=== PATIENT | female | born 1985 | race Caucasian/White ===

== ENCOUNTER 2019-01-11 08:12 | Day surgery (SDC) | payer BC ==
[~2019-01-11] VITALS: Ht 172.7 cm; Wt 102.7 kg
[2019-01-11] VITALS (25 sets, daily range): BP systolic 111–141; BP diastolic 59–81; PULSE 58–82; RESP 13–21; Ht 172.7 cm; Wt 102.7 kg
[2019-01-11] MEDS ORDERED: AMLO-147 PO (08:40)
[2019-01-11] MEDS ORDERED: HYDR12.58 PO (08:42)
[2019-01-11] MEDS ORDERED: LACTATED RINGER'S 1,000 ML IV SCH (09:30)
[2019-01-11] MEDS ORDERED: CEFAZOLIN 2 GM/50 ML (PMX) 50 ML IVPB ONE (09:30)
--- NOTE | 2019-01-11 10:32 | HPN ---
Date/Time of Note Date/Time of Note DATE: 01/11/19 TIME: 10:31 Interval H&P Admission Note Pt. seen H&P reviewed: No system changes SHARYN JIMENEZ PA-C Jan 11, 2019 10:32
[2019-01-11] MEDS ORDERED: BUPIVACAINE 0.25%/EPI (SDV) 30 ML INJ ONE (10:38)
[2019-01-11] MEDS ORDERED: THROMBIN (BOVINE) 5,000 UNIT VIAL TP ONE ×2 (10:39→12:21)
[2019-01-11] MEDS ORDERED: POLYMYXIN/BACITRACIN 1L IRRIG ONE (10:39)
[2019-01-11] MEDS ORDERED: GELATIN SIZE 100 SPONGE ONE (10:39)
[2019-01-11] MEDS ORDERED: SURGIFOAM POWDER 1 GM KIT ONE (10:39)
--- NOTE | 2019-01-11 10:45 | PREAC ---
Date/Time of Note Date/Time of Note DATE: 01/11/19 TIME: 10:44 Anesthesia Eval and Record Evaluation Time Pre-Procedure Interview DATE: 01/11/19 TIME: 10:44 Age 33 Sex female NPO: 8 hrs Preoperative diagnosis Lumbar L5-S1 Spinal Stenosis, HNP Planned procedure Lumbar L5-S1 Microdiscetomy Past Medical History Past Medical History: Includes Cardio: HTN GI: Obesity Surgery & Anesthesia Issues No known issue Meds Anticoagulation: No Beta Bronwyn within 24 hr: No Reason Beta Bronwyn not given: Pt. not on B-Bronwyn Reported Medications Hydrochlorothiazide* (Hydrochlorothiazide*) 12.5 Mg Tablet, 12.5 MG PO DAILY, #30 TAB 01/11/19 Amlodipine Besylate* (Amlodipine Besylate*) 10 Mg Tablet, 10 MG PO DAILY, #30 TAB 01/11/19 Current Medications Lactated Ringer's 1,000 ml @ 25 mls/hr Q24H IV Last administered on 01/11/19at 09:26; Admin Dose 25 MLS/HR; Start 01/11/19 at 09:30 Potassium Chloride/Dextrose/ Sod Cl 1,000 ml @ 100 mls/hr Q10H IV ; Start 01/11/19 at 10:32; Status UNV Acetaminophen/ Hydrocodone Bitart (Redgranite (10/325)) 1 tab Q4H PRN PO .PAIN 1-5; Start 01/11/19 at 11:00; Status UNV Acetaminophen/ Hydrocodone Bitart (Redgranite (10/325)) 2 tab Q4H PRN PO .PAIN 6-10; Start 01/11/19 at 11:00; Status UNV Hydromorphone HCl (Dilaudid) 0.2 mg Q1H PRN IV .BREAKTHROUGH PAIN; Start 01/11/19 at 11:00; Status UNV Cefazolin Sodium 50 ml @ 100 mls/hr Q8H IVPB ; Start 01/11/19 at 11:00; Stop 01/12/19 at 03:29; Status UNV Ondansetron HCl (Zofran Inj) 4 mg Q6H PRN IV NAUSEA/VOMITING; Start 01/11/19 at 11:00; Status UNV Bisacodyl (Dulcolax Supp) 10 mg DAILY PRN MA .CONSTIPATION; Start 01/11/19 at 11:00; Status UNV Docusate Sodium (Colace) 100 mg BID PO ; Start 01/11/19 at 21:00; Status UNV Al Hydrox/Mg Hydrox/Simethicone (Mag-Al Plus) 15 ml Q6H PRN PO .CONSTIPATION/DYSPEPSIA; Start 01/11/19 at 11:00; Status UNV Acetaminophen (Tylenol Tab) 650 mg Q4H PRN PO DE JESUS OR TEMP GREATER THAN 101.3F; Start 01/11/19 at 11:00; Status UNV Cyclobenzaprine HCl (Flexeril) 5 mg TID PRN PO .MUSCLE SPASM; Start 01/11/19 at 11:00; Status UNV Phenol (Cepastat Lozenge) 1 lozenge PRN PRN MT .SORE THROAT; Start 01/11/19 at 11:00; Status UNV Diphenhydramine HCl (Benadryl) 25 mg Q6H PRN PO .ITCHING; Start 01/11/19 at 11:00; Status UNV Diphenhydramine HCl (Benadryl) 25 mg Q6H PRN IV .ITCHING; Start 01/11/19 at 11:00; Status UNV Naloxone HCl (Narcan) 0.2 mg Q2M PRN IV .RR 8 BREATHS/MIN OR LESS; Start 01/11/19 at 11:00; Status UNV Meds reviewed: Yes Allergies Coded Allergies: No Known Allergy (Unverified , 01/11/19) Allergies Reviewed: Yes Labs/Studies Labs Reviewed: Reviewed by anesthesiologist test: Negative Studies: ECG (n/a), CXR (n/a) Pre-procedure Exam Last vitals Vital Signs Date Temp Pulse Resp B/P (MAP) Pulse Ox O2 O2 Flow FiO2 Time Delivery Rate 01/11/19 97.0 77 16 135/81 99 Room Air 09:06 (99) Airway: Adequate mouth opening, Adequate thyromental dist Mallampati: Mallampati II Teeth: Normal Lung: Normal Heart: Normal ASA Physical Status ASA physical status: 2 Emergency: None Planned Anesthetic General/MAC: ETT Planned Pain Management Parenteral pain med Pre-operative Attestations Prior to commencing anesthesia and surgery, the patient was re-evaluated, there was verification of: *The patient's identity *The results of appropriate recent lab work and preoperative vital signs *The above evaluation not changing prior to induction *Anesthetic plan, risk benefits, alternative and complications discussed with patient/family; questions answered; patient/family understands, accepts and wishes to proceed. HEYDI HORTON MD Jan 11, 2019 10:45
[2019-01-11] MEDS ORDERED: MIDAZOLAM 1 MG/ML 2 ML INJ ONE (10:50)
[2019-01-11] MEDS ORDERED: PROPOFOL 20 ML ONE (10:50)
[2019-01-11] MEDS ORDERED: ROCURONIUM 50 MG INJ ONE (10:50)
[2019-01-11] MEDS ORDERED: HYDROmorphONE 0.5 MG/0.5 ML SYG IV PRN (11:00)
[2019-01-11] MEDS ORDERED: METOCLOPRAMIDE 10 MG INJ IV PRN (11:00)
[2019-01-11] MEDS ORDERED: HYDROCODONE/APAP (10/325) TAB PO PRN (11:00)
[2019-01-11] MEDS ORDERED: LABETALOL HCL 20MG INJ IV PRN (11:00)
[2019-01-11] MEDS ORDERED: NALOXONE (0.4 MG/ML) INJ IV PRN (11:00)
[2019-01-11] MEDS ORDERED: DIPHENHYDRAMINE 50 MG INJ IV PRN ×2 (11:00)
[2019-01-11] MEDS ORDERED: SEVOFLURANE 15 MIN ONE (11:00)
[2019-01-11] MEDS ORDERED: hydrALAzine 20 MG INJ IV PRN (11:00)
[2019-01-11] MEDS ORDERED: MEPERIDINE 25 MG INJ IV PRN (11:00)
[2019-01-11] MEDS ORDERED: AL HYDROX/MG HYDROX/SIMETH 30 ML CUP PO PRN (11:00)
[2019-01-11] MEDS ORDERED: CYCLOBENZAPRINE 10 MG TAB PO PRN (11:00)
[2019-01-11] MEDS ORDERED: CEPASTAT LOZENGE MT PRN (11:00)
[2019-01-11] MEDS ORDERED: ACETAMINOPHEN 325 MG TAB PO PRN (11:00)
[2019-01-11] MEDS ORDERED: OXYCODONE/ACETAMINOPHEN (5/325) TAB PO PRN ×2 (11:00)
[2019-01-11] MEDS ORDERED: BISACODYL 10 MG SUPP PR PRN (11:00)
[2019-01-11] MEDS ORDERED: CEFAZOLIN 1 GM INJ ONE (11:00)
[2019-01-11] MEDS ORDERED: CEFAZOLIN 1 GM/50 ML (PMX) 50 ML IVPB SCH (11:00)
[2019-01-11] MEDS ORDERED: HYDROmorphONE 1 MG/5 ML IV SYRINGE IV PRN ×3 (11:00)
[2019-01-11] MEDS ORDERED: EPHEDrine 25 MG/5 ML SYG IV PRN (11:00)
[2019-01-11] MEDS ORDERED: FENTAnyl 50 MCG/ML VIAL IV PRN ×3 (11:00)
[2019-01-11] MEDS ORDERED: DIPHENHYDRAMINE 25 MG CAP PO PRN (11:00)
[2019-01-11] MEDS ORDERED: ONDANSETRON 4 MG INJ IV PRN ×2 (11:00)
[2019-01-11] MEDS ORDERED: HEPARIN 1000 UNITS/ML 10 ML INJ ONE (11:25)
[2019-01-11] MEDS ORDERED: DEXAMETHASONE 4 MG/ML 5 ML INJ ONE (11:48)
[2019-01-11] MEDS ORDERED: METOCLOPRAMIDE 10 MG INJ ONE (11:48)
[2019-01-11] MEDS ORDERED: ONDANSETRON 4 MG INJ ONE (11:48)
[2019-01-11] MEDS ORDERED: LABETALOL HCL 20MG INJ ONE (11:48)
[2019-01-11] MEDS ORDERED: SUCCINYLCHOLINE CHLORIDE 100 MG/5 ML SYG IV ONE (11:49)
[2019-01-11] MEDS ORDERED: SUGAMMADEX SODIUM 200 MG/2 ML VIAL IV ONE (11:49)
[2019-01-11] MEDS ORDERED: CA CHLORIDE 10% 10 ML SYRINGE ONE (11:53)
--- NOTE | 2019-01-11 13:39 | SIPON ---
Date/Time of Note Date/Time of Note DATE: 01/11/19 TIME: 13:38 Operative Report Preoperative Diagnosis Lumbar disc herniation Postoperative Diagnosis Lumbar disc herniation Operation/Procedure Performed Lumbar discectomy Surgeon see signature line curriculum assistant Zara Anesthesia: general Estimated blood loss: 10 - 50 ml's Transfusion Required none Specimen Disc Grafts/Implants none Complications none COURTNEY LUIS MD Jan 11, 2019 13:39
--- NOTE | 2019-01-11 13:42 | PAC ---
Date/Time of Note Date/Time of Note DATE: 01/11/19 TIME: 13:41 Post-Anesthesia Notes Post-Anesthesia Note Last documented vital signs Vital Signs Date Temp Pulse Resp B/P (MAP) Pulse Ox O2 O2 Flow FiO2 Time Delivery Rate 01/11/19 97.0 77 16 135/81 99 Room Air 03:40 (99) Activity: WNL Respiratory function: WNL Cardiovascular function: WNL Mental status: Baseline Pain reasonably controlled: Yes Hydration appropriate: Yes Nausea/Vomiting absent: Yes HYEDI HORTON MD Jan 11, 2019 13:42
[2019-01-11] MEDS: D5W-0.45 NACL + KCL 20 MEQ 1,000 ML IV SCH ×2 (16:30→17:57)
--- NOTE | 2019-01-11 16:50 | OPR ---
DATE OF OPERATION: 01/11/2019 PREOPERATIVE DIAGNOSIS: Right L5 to S1 disk herniation with radiculopathy. POSTOPERATIVE DIAGNOSIS: Right L5 to S1 disk herniation with radiculopathy. PROCEDURES: 1. Right L5 to S1 hemilaminotomy, partial medial facetectomy and foraminotomy. 2. Right L5 to S1 lumbar microdiskectomy. 3. Use of operative microscope. 4. Use of C-arm fluoroscopy with interpretation without radiologist present. 5. Intraoperative neuromonitoring. PRIMARY SURGEON: Vin Bateman MD LACEMAKER: Sharmin Zuñiga PA-C NEED FOR BAND SCROLL SAW OPERATOR: During this spinal surgical procedure, my medicine assistant was used to retract and protect the spinal nerves and dural sac. My medicine assistant also employed the suction catheters to ev acuate blood from the surgical field to improve visualization of the neural structures. The assistan t was medically necessary to facilitate the completion of the surgery in a safe and expeditious [facility]. [facility] regulations, as well as hospital bylaws, preclude the use of non-licensed [facility] care personnel, such as operating room technicians, to perform these functions. FINDINGS: Neuromonitoring at the start of the case revealed right L5 down 50%, right S1 down 30%. A t the end of the case, all nerve signals returned to normal. The patient had a large central extrusi on at the L5 to S1 level. ESTIMATED BLOOD LOSS: Less than 40 mL. DRAINS: None. SPECIMENS: L5 to S1 disk. COMPLICATIONS OF PROCEDURES: None. ANESTHESIOLOGIST: Isiah Bullock MD TYPE OF ANESTHESIA: General. INDICATIONS FOR PROCEDURE: This is a 33-year-old female with right lumbar radiculopathy, cervical di sk herniation at the L5 to S1 level. She failed nonoperative measures; therefore, I recommended that she undergo the above procedure. Preoperatively, we discussed risks, benefits and alternatives. Sh e understood and wished to proceed. DESCRIPTION OF PROCEDURE IN DETAIL: The patient was identified in the preoperative holding area, [facility], taken to the operating room where she was successfully placed under general anes thesia. Neuromonitoring leads were placed. Sequential compressive devices were applied. Remote int raoperative neuromonitoring was performed by Dr. Barraza from 11:02 until 13:35 to include SSEP, ME P and EMG performed by [employer]. The patient was placed in the operative table in prone posi tion over a Dhruv frame. All bony prominences were padded. The back was then prepped and draped in usual sterile fashion. Using the C-arm fluoroscope, I identified the incision site. I anesthetized the skin and subcutaneous tissue with Marcaine and epinephrine. Incision was then made over the L5 to S1 level. Incision was taken down to dorsal fascia which was incised with Bovie cautery. I then subperiosteally dissected the right L5 and S1 lamina. Marta retractor was placed. Kerrison was robert percy under the L5 lamina. Repeat lateral film was obtained to confirm the correct levels. Once this was confirmed, microscope was brought in. Right-sided hemilaminotomy, partial medial facetectomy and foraminotomy were performed. Ligamentum flavum was then sharply dissected. I identified the S1 ner ve root which my medicine assistant retracted medially. I identified the annulus, made an annulotomy followed by limited microdiskectomy. I irrigated the disk space and the wound. I felt the floor of the charanjit l and there was no longer any nerve root compression. Nerve signals returned to normal. Valsalva ma neuver was performed and there was no leak of CSF. PPP and thrombin was injected for hemostatic purp oses. Retractors were removed. I closed the deep fascia with #1 Vicryl stitch. I closed the subcut aneous tissue with a 2-0 Vicryl stitch. A 4-0 Monocryl closure was then performed. Dermabond was th en applied. The patient was awakened from anesthesia and taken to the recovery room in stable condit ion. Lap, sponge and instrument counts were correct x2. There were no apparent complications during the procedure. The patient will be admitted to the [facility] for routine postoperative care to include pain co ntrol, neurovascular checks, antibiotics and physical therapy. Dictated By: VIN SWANSON/SANDOR Conf#: [id number] DID#: [id number]
[2019-01-11] MEDS: CEFAZOLIN 1 GM/50 ML (PMX) 50 ML IVPB SCH (19:44)
[2019-01-11] MEDS: HYDROCODONE/APAP (10/325) TAB PO PRN (20:29)
[2019-01-11] MEDS: DOCUSATE SODIUM 100 MG CAP PO SCH (20:29)
[2019-01-12] MEDS: D5W-0.45 NACL + KCL 20 MEQ 1,000 ML IV SCH ×2 (03:39→03:43)
[2019-01-12] MEDS: CEFAZOLIN 1 GM/50 ML (PMX) 50 ML IVPB SCH ×2 (03:40→11:46)
[2019-01-12 03:50] VITALS: BP 131/68; PULSE 63; RESP 20
[2019-01-12 08:02] VITALS: BP 131/63; PULSE 70; RESP 20
[2019-01-12] MEDS: DOCUSATE SODIUM 100 MG CAP PO SCH (08:26)
[2019-01-12] MEDS: HYDROCODONE/APAP (10/325) TAB PO PRN ×2 (08:27→13:09)
--- NOTE | 2019-01-17 09:11 | DS ---
DATE OF ADMISSION: 01/11/2019 DATE OF DISCHARGE: 01/12/2019 ADMITTING DIAGNOSIS: Lumbar disk herniation. DISCHARGE DIAGNOSIS: Lumbar disk herniation. PROCEDURE: The patient was taken to the operating room on 01/11/2019, underwent lumbar diskectomy. HOSPITAL COURSE: The patient was admitted to [facility] after undergoing the above procedure. Her postoperative course was uncomplicated. By postoperative day 1, she was deemed stable for discha rge. Followup arranged with the undersigned. Dictated By: COURTNEY SWANSON/SANDOR Conf#: [id number] DID#: [id number]
== END 2019-01-12 15:50 | disposition home or self-care (01) ==
LOC: SDS 08:12 → MS1 16:19 → SDS 01-12 15:50
PROVIDERS: ATTEND Specialist
DX: M51.16 Intervertebral disc disorders with radiculopathy, lumbar region (principal); I10 Essential (primary) hypertension
CPT/HCPCS: 63030; 72100; 80048; 83735; 84703; 85025; 86999; 88304; 97110; 97116; 97161; 97530; G0378; J0690; J1100; J1170; J1644; J2250; J2405; J2765; J3010; J3480